=== PATIENT | female | born 1955 | race Caucasian/White ===

== ENCOUNTER 2020-06-04 10:51 | Day surgery (SDC) | payer MEDICAID ==
[~2020-06-04] VITALS: Ht 160 cm; Wt 73.0 kg
[~2020-06-04 10:51] MED LIST: SODIUM CHLORIDE 0.9% 1,000 ML IV ONE; SODIUM CHLORIDE 0.9% 1,000 ML ONE
[2020-06-04] MEDS ORDERED: PROPOFOL 1% 20 ML VIAL IVP ONE (10:52)
[2020-06-04] MEDS ORDERED: LIDOCAINE/PF 2% 5 ML SYRINGE IVP ONE (10:52)
[2020-06-04 11:37] LABS: GLUCOMETER DEV NAME(LOC) SDS.; GLUCOSE,POINT OF CARE 164 MG/DL (70-110)
[2020-06-04] MEDS ORDERED: METF-960 PO (11:48)
[2020-06-04] MEDS ORDERED: ARIP5TAB8 PO (11:48)
[2020-06-04] MEDS ORDERED: ESCI-8 PO (11:48)
[2020-06-04] MEDS ORDERED: OXYGEN THERAPY IH SCH (12:15)
== END 2020-06-04 13:40 | disposition home or self-care (01) ==
LOC: SURGERY 10:51
PROVIDERS: ATTEND Specialist
DX: D50.9 Iron deficiency anemia, unspecified (principal); K63.89 Other specified diseases of intestine; E11.9 Type 2 diabetes mellitus without complications; I25.10 Atherosclerotic heart disease of native coronary artery without angina pectoris; I10 Essential (primary) hypertension; M19.90 Unspecified osteoarthritis, unspecified site; K21.9 Gastro-esophageal reflux disease without esophagitis; E78.00 Pure hypercholesterolemia, unspecified; Z87.442 Personal history of urinary calculi; Z79.899 Other long term (current) drug therapy
CPT/HCPCS: 45380; 82962; 87635; 88305; C1769; J2704; J3490; J7030